=== PATIENT | male | born 1995 ===

== ENCOUNTER 2017-06-03 15:28 | Outpatient (RCR) | payer OTHER ==
[2017-05-28 14:05] VITALS: BP 120/68
--- NOTE | 2017-05-31 04:13 | ONCOLOGY CONSULTATION ---
EVENT DATE: May 28, 2017 REFERRING PHYSICIAN Alyson Peña, LORRAINE, BILL ADJUSTER- REASON FOR CONSULTATION Evaluation and management of high serum iron. HISTORY OF PRESENT ILLNESS The patient is a 21-year-old male student who presented to [facility] with numbness and tingling in the hands and feet. Patient was evaluated, and he was found to have high serum iron, and his serum iron was 270. His iron saturation was 92%. His TIBC was 295, and his ferritin level was 317. Apart from having the neuropathic symptoms, patient does not have any other problem. PAST MEDICAL HISTORY Insignificant. PAST SURGICAL HISTORY [place] tooth extraction. FAMILY HISTORY Negative for cancer, blood diseases or hemochromatosis. SOCIAL HISTORY Patient is single with no children. He is a student studying civil engineering. He drinks about six beers a week, denies any abuse of tobacco or illicit drugs. CURRENT MEDICATIONS None. ALLERGIES No known drug allergies. REVIEW OF SYSTEMS REVIEW OF SYSTEMS CONSTITUTIONAL: No appetite or weight change. No fever, chills or sweating. No recent infection. HEENT: Ears: No tinnitus or hearing problem. Nose: No nasal discharge or epistaxis. Throat: No sore throat or mouth ulcers. Eyes: No diplopia or visual changes. RESPIRATORY: No shortness of breath. No cough, expectoration or hemoptysis. CARDIOVASCULAR: No chest pain, orthopnea, or paroxysmal nocturnal dyspnea (PND) . No edema. No palpitations. GASTROINTESTINAL: No nausea or vomiting. No diarrhea or constipation. No change in bowel movements. No heartburn or swallowing difficulties. No abdominal pain. No jaundice. No hematemesis, melena or rectal bleeding. GENITOURINARY: No hematuria or dysuria. MUSCULOSKELETAL: No pain in the muscles, joints or bones. NEUROLOGICAL: Patient has tingling and numbness in the hands and feet. HEMATOLOGIC/LYMPHATIC: No bleeding or easy bruising. No weakness or fatigued. No enlarged lymph nodes. SKIN: No skin rash or lumps. PSYCHIATRIC: No anxiety or depression. PHYSICAL EXAMINATION GENERAL: Looks stable. Well-developed, well-nourished, and in no acute distress. VITAL SIGNS: Blood pressure 120/68, pulse 61 per minute, respirations 15 per minute, temperature 98, pulse oximetry 94%% on room air. HEENT: Head: Atraumatic. No sinus tenderness to palpation. Eyes: No icterus or conjunctivitis. Mouth and throat: No oral thrush or mucositis. NECK: Supple. No cervical or supraclavicular lymphadenopathy. LUNGS: Clear to auscultation and percussion bilaterally. HEART: Regular rate and rhythm. No gallops, murmurs, clicks or rubs. ABDOMEN: Soft and lax. No tenderness. No hepatosplenomegaly. No masses. EXTREMITIES: No cyanosis, clubbing or edema. LYMPHATICS: No peripheral lymphadenopathy. NEUROLOGICAL: Conscious, alert and oriented times three. No focal motor or sensory deficits. PSYCHIATRIC: Mood and affect appear normal. SKIN: No skin rash, bruise or purpuric eruption. ASSESSMENT High serum iron with high iron saturation. Could be due to hemochromatosis. Patient was on multivitamins before and he is not sure if the multivitamins contain iron supplement or not, and for this reason I am planning to repeat his iron studies today, and if the iron studies show iron overload, then I will proceed with genetic testing for hemochromatosis. I explained to him if he will have hemochromatosis, then he will need phlebotomy sessions initially as induction phlebotomy, then after achieving the target, we will maintain phlebotomy sessions if the iron studies will be above the target. I am planning to do CBC, iron studies with ferritin today, and also check his chem panel. I will see him in a week for further evaluation and management. If his iron saturation or ferritin are higher than normal, will proceed with genetic testing for hemochromatosis. PLAN 1. CBC. 2. Chem panel. 3. Iron studies with ferritin. 4. Patient to return in one week for further evaluation and management. 5. Consider genetic testing for hemochromatosis if iron saturation or ferritin level are higher than normal range. 6. Patient to contact us for any new concerns or complaints. JAGJIT
[2017-05-31 13:55] VITALS: BP 130/86
[2017-05-31 14:10] LABS: PLATELET COUNT, AUTOMATED 323 K/uL (150-450)
[2017-06-03 15:47] VITALS: BP 129/79
--- NOTE | 2017-06-04 10:38 | ONCOLOGY FOLLOW UP NOTE ---
EVENT DATE: June 03, 2017 DIAGNOSIS Possible iron overload. CHIEF COMPLAINT Patient is here today for followup of his iron overload. 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 Patient was evaluated, and he was found to have high serum iron, and his serum iron was 270. His iron saturation was 92%. His TIBC was 295, and his ferritin level was 317. Apart from having the neuropathic symptoms, patient does not have any other problem. Repeat CBC showed white count 7.8, hemoglobin 17.8, hematocrit 50.8, platelets 323,000. Serum iron 86, TIBC 305, iron saturation 28.2%, ferritin 132. HISTORY OF PRESENT ILLNESS Patient is here today for followup of his iron overload. He is totally asymptomatic and doing very well currently. PAST MEDICAL HISTORY Insignificant. PAST SURGICAL HISTORY [place] tooth extraction. FAMILY HISTORY Negative for cancer, blood diseases or hemochromatosis. SOCIAL HISTORY Patient is single with no children. He is a student studying civil engineering. He drinks about six beers a week, denies any abuse of tobacco or illicit drugs. CURRENT MEDICATIONS None. ALLERGIES No known drug allergies. REVIEW OF SYSTEMS CONSTITUTIONAL: No appetite or weight change. No fever, chills or sweating. No recent infection. HEENT: Ears: No tinnitus or hearing problem. Nose: No nasal discharge or epistaxis. Throat: No sore throat or mouth ulcers. Eyes: No diplopia or visual changes. RESPIRATORY: No shortness of breath. No cough, expectoration or hemoptysis. CARDIOVASCULAR: No chest pain, orthopnea, or paroxysmal nocturnal dyspnea (PND) . No edema. No palpitations. GASTROINTESTINAL: No nausea or vomiting. No diarrhea or constipation. No change in bowel movements. No heartburn or swallowing difficulties. No abdominal pain. No jaundice. No hematemesis, melena or rectal bleeding. GENITOURINARY: No hematuria or dysuria. MUSCULOSKELETAL: No pain in the muscles, joints or bones. NEUROLOGICAL: Patient has tingling and numbness in the hands and feet. HEMATOLOGIC/LYMPHATIC: No bleeding or easy bruising. No weakness or fatigued. No enlarged lymph nodes. SKIN: No skin rash or lumps. PSYCHIATRIC: No anxiety or depression. PHYSICAL EXAMINATION GENERAL: Looks stable. Well-developed, well-nourished, and in no acute distress. VITAL SIGNS: Blood pressure 129/79, pulse 87 per minute, respirations 16 per minute, temperature 98.7, pulse oximetry 92% on room air. HEENT: Head: Atraumatic. No sinus tenderness to palpation. Eyes: No icterus or conjunctivitis. Mouth and throat: No oral thrush or mucositis. NECK: Supple. No cervical or supraclavicular lymphadenopathy. LUNGS: Clear to auscultation and percussion bilaterally. HEART: Regular rate and rhythm. No gallops, murmurs, clicks or rubs. ABDOMEN: Soft and lax. No tenderness. No hepatosplenomegaly. No masses. EXTREMITIES: No cyanosis, clubbing or edema. LYMPHATICS: No peripheral lymphadenopathy. NEUROLOGICAL: Conscious, alert and oriented times three. No focal motor or sensory deficits. PSYCHIATRIC: Mood and affect appear normal. SKIN: No skin rash, bruise or purpuric eruption. DIAGNOSTIC DATA CBC showed white count 7.8, hemoglobin 17.8, hematocrit 50.8, platelets 323, 000. Serum iron 86, TIBC 305, iron saturation 28.2% and ferritin 132. ASSESSMENT High serum iron with high iron saturation. Could be due to hemochromatosis. Repeat iron study shows totally normal iron studies with serum ferritin 86, TIBC 305, iron saturation 28.2% and ferritin 132. There is no evidence of iron overload. I assured the patient he does not have any high iron studies. I told him to continue followup with his primary care provider, [facility] Peña. I will be more than happy to see him in the future if he has any hematological problem. PLAN 1. Continue followup with Alyson Peña. 2. Patient to return on a p.r.n. basis. 3. Patient to contact us for any new concerns or complaints. JAGJIT
== END 2017-06-23 15:31 | disposition home or self-care (01) ==
LOC: ONC 15:28
PROVIDERS: ATTEND Internal Medicine Hematology
DX: E83.10 Disorder of iron metabolism, unspecified (principal); R79.0 Abnormal level of blood mineral; R20.2 Paresthesia of skin
CPT/HCPCS: 36415; 82040; 82247; 82310; 82374; 82435; 82565; 82728; 82947; 83540; 83550; 84075; 84132; 84155; 84295; 84450; 84460; 84520; 85025; 99202; 99212